=== PATIENT | female | born 2000 | race African-American/Black ===

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

== ENCOUNTER 2023-08-31 21:33 | Emergency (ER) | payer OTHER, MEDICAID ==
[~2023-08-31] VITALS: Ht 170.2 cm; Wt 63.2 kg
[~2023-08-31 21:33] MED LIST changes: +HYDR-4062 PO; -HYDR-4723 PO; +POLY17PO62 PO
[2023-08-31 21:38] VITALS: TEMP 98.9
[2023-08-31 21:47] LABS: COVID AG,FIA SOURCE NASAL SWAB
[2023-08-31 22:01] VITALS: BP 101/69; PULSE 109; RESP 16
[2023-08-31 22:05] LABS: SARS-COV2 (COVID) ANTIGEN,FIA Negative (Negative)
[2023-08-31] MEDS: LIDOCAINE 2% VISCOUS 15 ML SOLUTION UDCUP PO ONE (22:16)
[2023-08-31] MEDS: HYDROCODONE/ACETAMINOPHEN 5-325 MG TABLET PO ONE (22:16)
[2023-08-31] MEDS ORDERED: HYDR-4062 PO (22:26)
[2023-08-31] MEDS ORDERED: IBUP-1554 PO (22:26)
== END 2023-08-31 23:03 | disposition home or self-care (01) ==
LOC: EMS 21:33
DX: J02.8 Acute pharyngitis due to other specified organisms (principal); Z20.822 Contact with and (suspected) exposure to COVID-19
CPT/HCPCS: 87430; 99283